=== PATIENT | male | born 1985 | race Two or more races ===

== ENCOUNTER 2025-02-25 16:18 | Emergency (ER) | payer BC ==
[~2025-02-25] VITALS: Ht 175.3 cm; Wt 131.5 kg
[2025-02-25 16:31] VITALS: BP 131/88; O2SAT 97
[2025-02-25] MEDS ORDERED: COZAAR25 MG PO (16:33)
[2025-02-25] MEDS ORDERED: KETOROLAC TROMETHAMINE 30 MG VIAL IM STA (18:22)
[2025-02-25] MEDS ORDERED: KETOROLAC TROMETHAMINE 30 MG VIAL ONE (19:10)
== END 2025-02-25 20:34 | disposition home or self-care (01) ==
LOC: ER 17:00
DX: S49.81XA Other specified injuries of right shoulder and upper arm, initial encounter (principal); S59.801A Other specified injuries of right elbow, initial encounter; W19.XXXA Unspecified fall, initial encounter; Y93.89 Activity, other specified; Y92.830 Public park as the place of occurrence of the external cause; Y99.8 Other external cause status; M25.511 Pain in right shoulder; M25.521 Pain in right elbow